=== PATIENT | female | born 1960 | race Caucasian/White ===

== ENCOUNTER 2021-01-09 07:47 | Outpatient (CLI) | payer SELFPAY ==
--- NOTE | 2021-01-09 08:00 | CT_ITS ---
WS: [id number] CT scan of the head, 01/09/2021 Clinical Data: R22.0 - Localized swelling, mass and lump, head Comparison: None. DLP: 925.[address] scans at [facility] use at least one of these dose optimization techniques: automat ed exposure control; mA and/or kV adjustment per patient size (includes targeted exams where dose is matched to clinical indication); or iterative reconstruction. Findings: The ventricular system is normal without shift. No recent infarct or hemorrhage is seen. There are no abnormal intracerebral masses. The cerebellum and brainstem are not remarkable. Bony windows of the skull and skull base show a 2.6 cm erosion and destruction of the left posterior parietal bone. Adjacent to this destruction is a soft tissue mass of the adjacent scalp measuring 2.2 x 5.8 cm. The soft tissue mass has no defining characteristics but it is of mixed density. The inner table of the destroyed portion of the posterior parietal bone shows a line which shows minimal prot rusion into the left posterior parietal canas matter. The mastoid air cells, internal auditory canals, sella turcica, intraorbital contents, and paranasal sinuses are unremarkable. CT/CT head wo con* [id number] Impression: 1. Soft tissue mass, 2.2 x 5.8 cm, of the left posterior parietal scalp causing a 2.6 cm erosion and destruction of the left posterior parietal bone which cou ld represent an inflammatory mass, a primary sarcoma or metastatic lesion. 2. The intracranial contents are not remarkable.
== END 2021-01-09 07:48 | disposition home or self-care (01) ==
PROVIDERS: Visit Provider Surgery
DX: R22.0 Localized swelling, mass and lump, head (principal)
CPT/HCPCS: 70450